=== PATIENT | male | born 1975 | race Native Hawaiian/Other Pacific Islander ===

== ENCOUNTER 2018-08-04 09:04 | Outpatient (CLI) | payer BC ==
[2018-08-04 09:24] LABS: PLATELET COUNT 230 K/uL (142-355)
[2018-08-04 09:38] LABS: POTASSIUM 4.1 mmol/L (3.6-5.2)
== END 2018-08-04 21:02 | disposition home or self-care (01) ==
LOC: LABW 09:04
PROVIDERS: Internal Medicine Gastroenterology
DX: K57.30 Diverticulosis of large intestine without perforation or abscess without bleeding (principal); R13.12 Dysphagia, oropharyngeal phase; K21.9 Gastro-esophageal reflux disease without esophagitis
CPT/HCPCS: 36415; 80053; 82150; 83690; 85027